=== PATIENT | male | born 1980 | race Caucasian/White ===

== ENCOUNTER 2021-11-23 06:10 | Emergency (ER) | payer SELFPAY ==
[~2021-11-23] VITALS: Ht 175.3 cm; Wt 92.1 kg
[2021-11-23 06:10] VITALS: BP 140/70
== END 2021-11-23 06:30 ==
LOC: MED 06:10
DX: Z02.89 Encounter for other administrative examinations (principal); F11.10 Opioid abuse, uncomplicated; I10 Essential (primary) hypertension
CPT/HCPCS: 99283

== ENCOUNTER 2023-01-07 14:31 | Emergency (ER) | payer MEDICAID ==
[~2023-01-07] VITALS: Ht 177.8 cm; Wt 104.3 kg
[2023-01-07 14:32] VITALS: BP 150/74; PULSE 122; RESP 17; TEMP 97.6; O2SAT 98
[2023-01-07] MEDS ORDERED: NACL 0.9% 1,000 ML IV ONE (14:50)
== END 2023-01-07 17:20 | disposition home or self-care (01) ==
LOC: MED 14:31
DX: F11.10 Opioid abuse, uncomplicated (principal); F15.90 Other stimulant use, unspecified, uncomplicated; R00.0 Tachycardia, unspecified; R42 Dizziness and giddiness; R44.3 Hallucinations, unspecified; I10 Essential (primary) hypertension
CPT/HCPCS: 93005; 96360; 99283; J7030